=== PATIENT | female | born 1965 | race Caucasian/White ===

== ENCOUNTER 2017-08-21 16:27 | Emergency (ER) | payer MEDICAID ==
[~2017-08-21 16:27] MED LIST: HYDROMET SYRUP PO; ZITHROMAX Z-PA250 M1 PO
[2017-08-21 19:18] VITALS: BP 120/73
== END 2017-08-21 19:18 | disposition home or self-care (01) ==
LOC: ED 16:27
DX: J45.901 Unspecified asthma with (acute) exacerbation (principal)
CPT/HCPCS: J2930; J7620

== ENCOUNTER 2017-12-06 21:26 | Emergency (ER) | payer MEDICAID ==
[~2017-12-06] VITALS: Ht 149.9 cm; Wt 71.2 kg
[2017-12-07 00:06] VITALS: BP 119/71
== END 2017-12-07 00:06 | disposition home or self-care (01) ==
LOC: ED 21:26
DX: J45.901 Unspecified asthma with (acute) exacerbation (principal)
CPT/HCPCS: J7512; J7613; J7644

== ENCOUNTER 2017-12-28 19:59 | Inpatient (IN) | payer MEDICAID ==
[~2017-12-28] VITALS: Ht 152.4 cm; Wt 72.4 kg
[2017-12-28 20:08] VITALS: Ht 152.4 cm; Wt 72.4 kg
[2017-12-28 22:29] LABS: BASOPHIL % 0.6 % (0-2); PLATELET COUNT 299 x10^3mcL (130-400); RED CELL DISTRIBUTION WIDTH 13.6 % (11.5-14.5)
[2017-12-28 22:34] LABS: CALCIUM 8.6 mg/dL (8.5-10.1); CARBON DIOXIDE 27.5 mmol/L (21-32); CHLORIDE SERUM 104 mmol/L (98-107); CREATININE SERUM 0.7 mg/dL (0.6-1.0); GFR1 > 60 mL/min; GLUCOSE SERUM 142 mg/dL (74-106); POTASSIUM SERUM 3.1 mmol/L (3.5-5.1); SODIUM SERUM 142 mmol/L (136-145)
[2017-12-28] MEDS ORDERED: NOVAPLUS V0.09 MG/Ac (22:37)
[2017-12-28 22:39] LABS: ALBUMIN 3.7 g/dL (3.4-5.0); ALKALINE PHOSPHATASE 133 U/L (46-116); ALT/SGPT 37 U/L (14-59); AST/SGOT 24 U/L (15-37); BILIRUBIN TOTAL 0.23 mg/dL (0.20-1.00)
[2017-12-28 23:18] VITALS: BP 103/57
[2017-12-29 00:35] VITALS: BP 103/57
[2017-12-29 03:08] LABS: T3 TOTAL 0.79 ng/mL
[2017-12-29 03:15] LABS: MAGNESIUM 2.3 mg/dL (1.8-2.4); PHOSPHOROUS 2.9 mg/dL (2.5-4.9)
[2017-12-29 03:19] LABS: FREE T4 1.14 ng/dL (0.76-1.46); FREE THYROXINE INDEX 2.7 ug/dL (1.4-4.5); T4(THYROXINE) 8.4 ug/dL (4.7-13.3)
[2017-12-29 04:05] LABS: CHOLESTEROL/HDL RATIO 5.3
[2017-12-29 05:23] VITALS: BP 113/65
[2017-12-29 06:26] LABS: BASOPHIL % 0.2 % (0-2); PLATELET COUNT 292 x10^3mcL (130-400); RED CELL DISTRIBUTION WIDTH 13.9 % (11.5-14.5)
[2017-12-29 06:32] LABS: CALCIUM 8.5 mg/dL (8.5-10.1); CARBON DIOXIDE 24.3 mmol/L (21-32); CHLORIDE SERUM 105 mmol/L (98-107); CREATININE SERUM 0.6 mg/dL (0.6-1.0); GFR1 > 60 mL/min; GLUCOSE SERUM 157 mg/dL (74-106); PHOSPHOROUS 2.9 mg/dL (2.5-4.9); POTASSIUM SERUM 3.9 mmol/L (3.5-5.1); SODIUM SERUM 140 mmol/L (136-145)
[2017-12-29 07:52] LABS: UA SPECIFIC GRAVITY >=1.030 (1.005-1.035); microscopic required? YES; urine erythrocyte 1+ (NEGATIVE)
[2017-12-29 08:08] LABS: AMPHETAMINE QUAL UR NONE DETECTED (NEG <=1000)
[2017-12-29] MEDS ORDERED: CLA10 PO (09:59)
[2017-12-29] MEDS ORDERED: MONTELUKAST SOD10 M1 PO (09:59)
[2017-12-29 10:00] VITALS: BP 92/52
[2017-12-29] MEDS ORDERED: MEDDP PO (10:00)
[2017-12-29] MEDS ORDERED: AZITHROMYCIN250 M1 PO (10:19)
[2017-12-29] MEDS ORDERED: LAC PO (10:21)
[2017-12-29 10:42] VITALS: BP 92/52
== END 2017-12-29 12:18 | disposition home or self-care (01) | DRG 141 ==
LOC: ED 19:59 → DU 22:05 → MU 12-29 07:57
PROVIDERS: Emergency Medicine; Family Medicine
DX: J45.901 Unspecified asthma with (acute) exacerbation (principal); J96.01 Acute respiratory failure with hypoxia; N17.0 Acute kidney failure with tubular necrosis; E87.6 Hypokalemia; E78.5 Hyperlipidemia, unspecified; E78.1 Pure hyperglyceridemia; J20.9 Acute bronchitis, unspecified; B34.9 Viral infection, unspecified; R31.9 Hematuria, unspecified
CPT/HCPCS: 36600; 82962; 83880; 84439; 87804; 90658; J0696; J1644; J2930; J3490; J7030; J7512; J7613; J7620

== ENCOUNTER 2018-06-15 18:46 | Emergency (ER) | payer MEDICAID ==
[~2018-06-15] VITALS: Ht 149.9 cm; Wt 71.2 kg
[~2018-06-15 18:46] MED LIST changes: +AZITHROMYCIN250 M1 PO; +CLA10 PO; +LAC PO; +MEDDP PO; +MONTELUKAST SOD10 M1 PO; +NOVAPLUS V0.09 MG/Ac
[2018-06-15 18:59] VITALS: Ht 149.9 cm; Wt 71.2 kg
[2018-06-15 22:28] VITALS: BP 114/74
== END 2018-06-15 22:29 | disposition home or self-care (01) ==
LOC: ED 18:46
DX: J45.901 Unspecified asthma with (acute) exacerbation (principal)
CPT/HCPCS: J7512; J7613; J7644; Q0092

== ENCOUNTER 2018-06-16 22:59 | Inpatient (IN) | payer MEDICAID ==
[~2018-06-16] VITALS: Ht 147.3 cm; Wt 72.1 kg
[2018-06-16 23:03] VITALS: Ht 147.3 cm; Wt 72.1 kg
[2018-06-16 23:46] LABS: BASOPHIL % 0.4 % (0-2); PLATELET COUNT 303 x10^3mcL (130-400); RED CELL DISTRIBUTION WIDTH 13.7 % (11.5-14.5)
[2018-06-16 23:52] LABS: CALCIUM 8.7 mg/dL (8.5-10.1); CHLORIDE SERUM 104 mmol/L (98-107); CREATININE SERUM 0.6 mg/dL (0.6-1.0); GFR1 > 60 mL/min; GLUCOSE SERUM 101 mg/dL (74-106); POTASSIUM SERUM 3.3 mmol/L (3.5-5.1); SODIUM SERUM 140 mmol/L (136-145)
[2018-06-17] VITALS (7 sets, daily range): BP systolic 104–125; BP diastolic 46–70
[2018-06-17 00:04] LABS: ALBUMIN 3.7 g/dL (3.4-5.0); ALKALINE PHOSPHATASE 115 U/L (46-116); ALT/SGPT 41 U/L (14-59); AST/SGOT 25 U/L (15-37); BILIRUBIN TOTAL 0.3 mg/dL (0.20-1.00); TOTAL PROTEIN, SERUM 7.6 g/dL (6.4-8.2)
[2018-06-17 04:10] LABS: T3 TOTAL 1.01 ng/mL
[2018-06-17 04:35] LABS: FREE T4 1.24 ng/dL (0.76-1.46); FREE THYROXINE INDEX 2.9 ug/dL (1.4-4.5)
[2018-06-17 06:40] LABS: UA SPECIFIC GRAVITY 1.015 (1.005-1.035); microscopic required? YES; urine erythrocyte 1+ (NEGATIVE)
[2018-06-18 05:32] VITALS: BP 93/54
[2018-06-18 06:16] VITALS: BP 105/49
[2018-06-18 07:12] LABS: PLATELET COUNT 315 x10^3mcL (130-400); RED CELL DISTRIBUTION WIDTH 14.4 % (11.5-14.5)
[2018-06-18 07:15] LABS: BASOPHIL % 0 % (0-2)
[2018-06-18 07:20] LABS: CALCIUM 8.6 mg/dL (8.5-10.1); CARBON DIOXIDE 26.1 mmol/L (21-32); CHLORIDE SERUM 108 mmol/L (98-107); CREATININE SERUM 0.7 mg/dL (0.6-1.0); GFR1 > 60 mL/min; GLUCOSE SERUM 153 mg/dL (74-106); MAGNESIUM 2.2 mg/dL (1.8-2.4); PHOSPHOROUS 3.5 mg/dL (2.5-4.9); POTASSIUM SERUM 4.2 mmol/L (3.5-5.1); SODIUM SERUM 142 mmol/L (136-145)
[2018-06-18 09:29] VITALS: BP 101/43
[2018-06-18 11:43] VITALS: BP 107/66
[2018-06-18 17:06] VITALS: BP 112/62
[2018-06-18 20:50] VITALS: BP 109/53
[2018-06-19 05:45] VITALS: BP 119/62
[2018-06-19 06:08] LABS: PLATELET COUNT 276 x10^3mcL (130-400); RED CELL DISTRIBUTION WIDTH 13.9 % (11.5-14.5)
[2018-06-19 06:14] LABS: CALCIUM 8.5 mg/dL (8.5-10.1); CARBON DIOXIDE 30.5 mmol/L (21-32); CHLORIDE SERUM 105 mmol/L (98-107); CREATININE SERUM 0.5 mg/dL (0.6-1.0); GFR1 > 60 mL/min; GLUCOSE SERUM 147 mg/dL (74-106); POTASSIUM SERUM 4.2 mmol/L (3.5-5.1); SODIUM SERUM 141 mmol/L (136-145)
[2018-06-19 07:30] LABS: BASOPHIL % 0 % (0-2)
[2018-06-19 09:42] VITALS: BP 118/71
[2018-06-19 12:56] VITALS: BP 122/61
[2018-06-19 14:33] VITALS: BP 122/61
[2018-06-19] MEDS ORDERED: PULMICORT180 MCG/Ac INH (15:11)
[2018-06-19] MEDS ORDERED: PREDNISONE20 MG PO (15:13)
== END 2018-06-19 16:49 | disposition home or self-care (01) | DRG 141 ==
LOC: ED 22:59 → DU 06-17 01:00
PROVIDERS: Emergency Medicine; Family Medicine
DX: J45.901 Unspecified asthma with (acute) exacerbation (principal); N17.0 Acute kidney failure with tubular necrosis; J96.01 Acute respiratory failure with hypoxia; E87.6 Hypokalemia; D72.829 Elevated white blood cell count, unspecified; Z68.33 Body mass index [BMI] 33.0-33.9, adult
CPT/HCPCS: 36600; 83880; 84439; 85378; J1644; J2920; J2930; J7030; J7613; J7620; J7626; J7644; Q0092

== ENCOUNTER 2020-09-12 19:36 | Emergency (ER) | payer MEDICAID ==
[~2020-09-12] VITALS: Ht 147.3 cm; Wt 82.6 kg
[~2020-09-12 19:36] MED LIST changes: +PREDNISONE20 MG PO; +PULMICORT180 MCG/Ac INH
[2020-09-12 19:45] VITALS: Ht 147.3 cm; Wt 82.6 kg
[2020-09-12 21:22] LABS: microscopic required? YES; urine erythrocyte 2+ (NEGATIVE)
[2020-09-12 22:49] LABS: PLATELET COUNT 335 x10^3mcL (130-400); RED CELL DISTRIBUTION WIDTH 14.2 % (11.5-14.5)
[2020-09-12 22:50] LABS: CALCIUM 8.9 mg/dL (8.5-10.1); CARBON DIOXIDE 33.1 mmol/L (21-32); CHLORIDE SERUM 104 mmol/L (98-107); CREATININE SERUM 0.8 mg/dL (0.6-1.0); GFR1 > 60 mL/min; GLUCOSE SERUM 151 mg/dL (74-106); POTASSIUM SERUM 3.7 mmol/L (3.5-5.1); SODIUM SERUM 140 mmol/L (136-145)
[2020-09-12 22:51] LABS: BAND NEUTROPHIL 0 % (0-10); MONOCYTE 8 % (0-7); SEGMENTED NEUTROPHILS 60 % (37-75); rbc morphology (normal/abnorm) NORMAL (NORMAL)
[2020-09-12 22:55] LABS: ALBUMIN 3.4 g/dL (3.4-5.0); ALKALINE PHOSPHATASE 162 U/L (46-116); ALT/SGPT 64 U/L (14-59); AST/SGOT 27 U/L (15-37); BILIRUBIN TOTAL 0.2 mg/dL (0.20-1.00); TOTAL PROTEIN, SERUM 7.1 g/dL (6.4-8.2)
[2020-09-12 23:41] VITALS: BP 135/76
== END 2020-09-12 23:41 | disposition home or self-care (01) ==
LOC: ED 19:36
PROVIDERS: Emergency Medicine
DX: N12 Tubulo-interstitial nephritis, not specified as acute or chronic (principal); Z98.890 Other specified postprocedural states